=== PATIENT | female | born 1985 | race Two or more races ===

== ENCOUNTER 2020-02-13 10:45 | Emergency (ER) | payer OTHER ==
[~2020-02-13] VITALS: Ht 154.9 cm; Wt 88.5 kg
[2020-02-13 10:46] VITALS: BP 115/74
== END 2020-02-13 11:57 | disposition home or self-care (01) ==
LOC: ER 10:47
DX: H66.93 Otitis media, unspecified, bilateral (principal)

== ENCOUNTER 2020-05-01 13:33 | Emergency (ER) | payer OTHER ==
[~2020-05-01] VITALS: Ht 154.9 cm; Wt 88.5 kg
[2020-05-01 14:09] VITALS: BP 117/80
[2020-05-01] MEDS ORDERED: KETOROLAC TROMETH 60MG/2ML VIAL IM ONE (15:00)
== END 2020-05-01 15:29 | disposition home or self-care (01) ==
LOC: ER 13:33
DX: S62.174A Nondisplaced fracture of trapezium [larger multangular], right wrist, initial encounter for closed fracture (principal); S63.501A Unspecified sprain of right wrist, initial encounter; S83.91XA Sprain of unspecified site of right knee, initial encounter; W01.0XXA Fall on same level from slipping, tripping and stumbling without subsequent striking against object, initial encounter; Y93.89 Activity, other specified; Y92.89 Other specified places as the place of occurrence of the external cause; Y99.8 Other external cause status
CPT/HCPCS: 29125; 73110; 96372; 99283; J1885